=== PATIENT | male | born 1960 | race Caucasian/White ===

== ENCOUNTER → 2018-07-14 | Emergency (ER) | payer OTHER ==
[~2018-07-14] VITALS: Ht 167.6 cm; Wt 112.5 kg
[~2018-07-14] MED LIST: COZAAR50 MG
== END | disposition home or self-care (01) ==
LOC: ER 14:39
DX: R10.12 Left upper quadrant pain (principal); K80.20 Calculus of gallbladder without cholecystitis without obstruction

== ENCOUNTER 2022-12-23 07:55 | Outpatient (CLI) | payer OTHER | END 2022-12-23 08:09 | disposition home or self-care (01) | LOC: RX STUDY 07:55 | DX: R19.5 Other fecal abnormalities (principal); K64.8 Other hemorrhoids; E66.01 Morbid (severe) obesity due to excess calories; R93.5 Abnormal findings on diagnostic imaging of other abdominal regions, including retroperitoneum ==

== ENCOUNTER 2023-01-14 07:28 | Outpatient (CLI) | payer OTHER | END 2023-01-14 07:33 | disposition home or self-care (01) | LOC: RX STUDY 07:28 | PROVIDERS: ATTEND Internal Medicine Gastroenterology | DX: R74.8 Abnormal levels of other serum enzymes (principal); K64.8 Other hemorrhoids; N40.0 Benign prostatic hyperplasia without lower urinary tract symptoms; N28.1 Cyst of kidney, acquired; I10 Essential (primary) hypertension; E66.01 Morbid (severe) obesity due to excess calories ==